=== PATIENT | female | born 1935 | race Caucasian/White ===

== ENCOUNTER 2024-05-02 02:47 | Emergency (ER) | payer OTHER ==
[~2024-05-02] VITALS: Ht 162.6 cm; Wt 90.7 kg
[2024-05-02] MEDS ORDERED: SERTRALINE HCL50 MG PO (02:56)
[2024-05-02] MEDS ORDERED: ATACAND16 MG PO (02:59)
[2024-05-02] MEDS ORDERED: TOPROL XL25 M1 PO (02:59)
[2024-05-02] MEDS ORDERED: LOREEV XR1 MG PO (02:59)
[2024-05-02] MEDS ORDERED: LEVO-T112 MCG PO (03:00)
[2024-05-02] MEDS ORDERED: TETANUS & DIPHTHERIA TOX,ADULT 0.5 ML VIAL IM STA (03:34)
[2024-05-02] MEDS ORDERED: CEFAZOLIN SODIUM 1,000 MG VIAL IM STA (03:35)
== END 2024-05-02 08:34 | disposition home or self-care (01) ==
LOC: ER 02:49
DX: S01.81XA Laceration without foreign body of other part of head, initial encounter (principal); W18.39XA Other fall on same level, initial encounter; Y93.89 Activity, other specified; Y92.013 Bedroom of single-family (private) house as the place of occurrence of the external cause; Y99.9 Unspecified external cause status; I10 Essential (primary) hypertension; Z88.8 Allergy status to other drugs, medicaments and biological substances
CPT/HCPCS: 12016; 70450; 70486; 90471; 90714; 96372; 99284; J0690; J1670